=== PATIENT | male | born 1990 | race Caucasian/White ===

== ENCOUNTER 2016-04-03 14:09 | Outpatient (CLI) | payer OTHER ==
[2016-01-28 17:43] VITALS: BP 174/104
[2016-04-03 14:26] LABS: BASOPHILS % 0.6 (0.0-1.5); EOSINOPHILS % 2.3 % (0.0-6.8); MEAN CORPUSCULAR HEMOGLOBIN 33.3 pg (28.0-34.0); MONOCYTES # 0.4 # k/uL (0.0-0.9); MONOCYTES % 7.4 % (0.0-11.0); NEUTROPHILS # 3.1 # k/uL (1.4-7.7)
[2016-04-03 14:51] LABS: eGFR (African) > 60; eGFR (Non-African) > 60
== END 2016-04-03 14:10 ==
LOC: LAB 14:09
PROVIDERS: ATTEND Physician Assistant
DX: R25.2 Cramp and spasm (principal); R53.83 Other fatigue
CPT/HCPCS: 36415; 80053; 85025

== ENCOUNTER 2016-05-04 12:55 | Emergency (ER) | payer OTHER ==
--- NOTE | 2016-05-04 13:16 | ED Physician Documentation ---
General Adult - HISTORIAN Historian: patient - HPI Stated Complaint: "High Blood Pressure" Chief Complaint: General Adult Further Comments: yes (25 year old male presents with complaints of hypertension, states he missed his appointment last week, does not know the name of his provider, does not know the name of his BP medication, states he has been out for 3-4 days.) - ROS CONST: no problems EYES/ENT: none CVS/RESP: none GI/: none MS/SKIN/LYMPH: none NEURO/PSYCH: denies: headache, fainting, dizziness, tingling, numbness, difficulty walking, difficulty with speech, anxiety, depression, other - PAST HX Past History: hypertension Allergies/Adverse Reactions: Allergies Allergy/AdvReac Type Severity Reaction Status Date / Time No Known Allergies Allergy Verified 05/04/16 12:59 Home Medications: Ambulatory Orders Medication Instructions Recorded Lisinopril [Prinivil] 20 mg PO QD 05/04/16 - SOCIAL HX Smoking History: cigarettes Alcohol Use: occasionally Drug Use: other (denies) - FAMILY HX Family History: Yes (HTN) - VITAL SIGNS Vital Signs: Vital Signs Temp Pulse Resp BP Pulse Ox 90 18 167/99 99 05/04/16 12:55 05/04/16 12:55 05/04/16 12:55 05/04/16 12:55 - REVIEWED ASSESSMENTS Nursing Assessment Reviewed: Yes Vitals Reviewed: Yes Progress - Progress Progress: Reviewed risks of HTN including stroke, and heart failure. Patient requesting refill for the "cramping medicine". Explained he would need to follow up with his PCP in 5-7 days for a BP and refill on any other medications. General Adult Physical Exam - PHYSICAL EXAM GENERAL APPEARANCE: mild distress EENT: eye inspection normal, ENT inspection normal, TIRSO RESPIRATORY: no resp distress, chest non-tender, breath sounds normal CVS: reg rate & rhythm, heart sounds normal, equal pulses, no murmur, no gallop , PMI nml, no JVD, no friction rub, 24 ABDOMEN: soft, no organomegaly, normal bowel sounds, no abdominal bruit, no distension BACK: normal inspection, no CVA tenderness SKIN: normal color, warm/dry, NR, INT, PAL, DR EXTREMITIES: non-tender, normal range of motion, no evidence of injury, no edema , J, [employer] NEURO: oriented X3, CN's nml as tested, motor nml, sensation nml, mood/affect nml Discharge Clincal Impression: Hypertension Qualifiers: Hypertension type: essential hypertension Qualified Code(s): I10 - Essential ( primary) hypertension Referrals: Radha Vaz PA [Primary Care Provider] - 2 Days Additional Instructions: mail superintendent your prescription and start it today. Make an appointment to see your doctor in 5-7 days for a blood pressure check Do not miss appointments, do not stop your blood pressure medication. Home Medications: Ambulatory Orders Lisinopril [Prinivil] 20 mg PO QD 05/04/16 Condition: Stable Disposition: 01 HOME, SELF-CARE Decision to Admit: NO Decision Time: 13:15
[2016-05-04 13:21] VITALS: BP 150/88
== END 2016-05-04 13:20 | disposition home or self-care (01) ==
LOC: ED 12:55
DX: I10 Essential (primary) hypertension (principal); F17.210 Nicotine dependence, cigarettes, uncomplicated
CPT/HCPCS: 99282; 99283

== ENCOUNTER 2016-05-09 14:12 | Outpatient (CLI) | payer OTHER ==
[2016-05-09 14:31] LABS: APPEARANCE,URINE Clear (CLEAR); COLOR,URINE Yellow (YELLOW); OCCULT BLOOD,URINE Negative (NEGATIVE); PH URINE 5.5 (5.0 - 8.0); UROBILINOGEN URINE 0.2 Eu (0.2-1.0)
== END 2016-05-09 14:13 ==
LOC: LAB 14:12
PROVIDERS: ATTEND Physician Assistant
DX: R25.2 Cramp and spasm (principal)
CPT/HCPCS: 36415; 81002; 82550; 82553

== ENCOUNTER 2016-08-15 09:03 | Emergency (ER) | payer OTHER ==
[2016-08-15] MEDS ORDERED: HYDROcodone /APAP 5/325 1 EACH TABLET PO ONE (10:02)
[2016-08-15] MEDS ORDERED: IBUPROFEN 400 MG TABLET PO ONE (10:02)
[2016-08-15] MEDS ORDERED: HYDROcodone /APAP 10/325 1 EACH TABLET PO ONE (10:05)
[2016-08-15] MEDS ORDERED: KETOROLAC TROMETHAMINE 30 MG/1ML VIAL IM ONE (10:05)
[2016-08-15 10:33] VITALS: BP 149/84
--- NOTE | 2016-08-15 13:17 | ED Physician Documentation ---
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15 Onset: days ago (2) Where: work Severity: moderate Duration: persistent since (2 days ago) Context: other (construction, ) Location of Injury: L wrist Front/Back of Body, Lg ([place]): 1 - pain Modifying Factors: pain on movement Further Comments: no - ROS CONST: no problems GI/: denies: problems urinating, nausea, vomiting NEURO: none CVS/RESP: none EYES/ENT: denies: none MS/SKIN/LYMPH: other (left wrist pain) - PAST HX Past History: none Immunizations: referred to PCP Allergies/Adverse Reactions: Allergies Allergy/AdvReac Type Severity Reaction Status Date / Time No Known Allergies Allergy Verified 08/15/16 09:53 Home Medications: Ambulatory Orders Medication Instructions Recorded Lisinopril [Prinivil] 20 mg PO QD 05/04/16 - SOCIAL HX Smoking History: cigarettes Alcohol Use: none Drug Use: none - FAMILY HX Family History: no significant history - VITAL SIGNS Vital Signs: Vital Signs Temp Pulse Resp BP Pulse Ox 82 20 129/102 96 08/15/16 09:48 08/15/16 09:48 08/15/16 09:48 08/15/16 09:48 - REVIEWED ASSESSMENTS Nursing Assessment Reviewed: Yes Vitals Reviewed: Yes Wrist Physical Exam - Physical Exam General Appearance: moderate distress Hand: nml inspection, non-tender, no evidence of FB Wrist: normal ROM, bone tenderness (left distal ulna), swelling (minor), tenderness (left distal ulna) Neuro: sensation nml, motor nml Vascular: no vascular compromise Tendon: tendon function nml Forearm/Elbow/Arm: uninjured above wrist Skin: warm/dry, normal color Head/ENT: nml inspection, pharynx nml Neck/Back: nml inspection, non-tender Resp/CVS: chest non-tender, breath sounds nml, heart sounds nml, no resp. distress, lungs clear, reg. rate & rhythm Abdomen: non-tender, no organomegaly, nml bowel sounds, no distention Progress - Results/Orders Results/Orders: x-ray left wrist ordered - Progress Progress: pt. given [place] 10/325 1 p.o. in er as well as 30 mg Toradol im in er Critical Care Note - Critical Care Note Total Time (mins): 0 ED Results Lab/Radiology - Lab Results Lab Results: none ordered - Radiology Radiology Impressions: x-ray left wrist neg for new fx - Orders Orders: ED Orders Category Date Time Status Cock-Up Splint 1T Care 08/15/16 10:26 Ordered WRIST 3 VIEWS OR MORE [RAD] Stat Exams 08/15/16 Ordered HYDROcodone /APAP 10/325 [[place] 10/325] Med 08/15/16 10:05 Discontinued 1 each PO NOW ONE HYDROcodone /APAP 5/325 [[place] 5/325] Med 08/15/16 10:02 Discontinued 1 each PO NOW ONE Ibuprofen [Advil] Med 08/15/16 10:02 Discontinued 800 mg PO NOW ONE Ketorolac Tromethamine [Toradol] Med 08/15/16 10:05 Discontinued 30 mg IM NOW ONE Discharge Clincal Impression: Wrist sprain Qualifiers: Encounter type: initial encounter Laterality: left Qualified Code(s): S63.502A - Unspecified sprain of left wrist, initial encounter Referrals: Radha Vaz PA [Primary Care Provider] - 2 Days Home Medications: Ambulatory Orders Lisinopril [Prinivil] 20 mg PO QD 05/04/16 Comments: discharged in stable condition to care of sig. other with scripts for tizanidine 4 mg 1 pill qid #20, meloxicam 1 pill twice daily #10. Condition: Stable Disposition: 01 HOME, SELF-CARE Decision to Admit: NO Decision Time: 10:30
--- NOTE | 2016-08-15 13:58 | Diagnostic Imaging Report ---
CHARLY BANGURA [facility] [id number] [facility] [address] [address] Report Submission Date: August 15, 2016 11:00:32 AM CDT Patient Study Name: SATHISH LAWRENCE Date: August 15, 2016 10:08:24 AM CDT Modality Type: CR Gender: M Description: UPPER EXTREMITY : 90 Institution: [facility] Physician: CHARLY BANGURA Left wrist 3 views History: Pain after injury Findings: The left wrist is unremarkable without fracture, dislocation, arthropathy, or focal bone lesion. The ulna is shorter than the radius. Impression: Negative ulnar variance. No acute abnormality. Electronically signed on August 15, 2016 11:00:32 AM CDT by: Donn WADE
== END 2016-08-15 10:30 | disposition home or self-care (01) ==
LOC: ED 09:03
DX: S63.502A Unspecified sprain of left wrist, initial encounter (principal); W19.XXXA Unspecified fall, initial encounter; Y93.9 Activity, unspecified; Y99.9 Unspecified external cause status
CPT/HCPCS: 73110; J1885; L3908

== ENCOUNTER 2016-10-15 08:00 | Emergency (ER) | payer OTHER ==
[2016-10-15 08:21] VITALS: BP 118/84
--- NOTE | 2016-10-15 08:39 | ED Physician Documentation ---
General Adult - HISTORIAN Historian: patient - HPI Stated Complaint: swollen mouth Chief Complaint: General Adult Onset: days ago (yesterday) Timing: still present Severity: mild (Started to breakout on his lips yesterday, stings and mansfiled, No fever or chills, can swallow OK. No previous problems. Has been out in the sun) Further Comments: yes (patient states it is at a history of fever blisters before but not to the extent that is having problems today. Patient data developing a sting in burning pain in his lips yesterday that has broke out with some blistering. Patient has been on the sun. Patient denies any oral mucosal lesions.) - ROS CONST: no problems. denies: fever, chills - PAST HX Past History: hypertension Other History: none Surgeries/Procedures: other (left meniscus surgery) Immunizations: referred to PCP Allergies/Adverse Reactions: Allergies Allergy/AdvReac Type Severity Reaction Status Date / Time No Known Allergies Allergy Verified 08/15/16 09:53 Home Medications: Ambulatory Orders Medication Instructions Recorded Lisinopril [Prinivil] 40 mg PO QD 05/04/16 Acyclovir [Zovirax] 200 mg PO 5XDAY #25 capsule 10/15/16 - SOCIAL HX Smoking History: less than 1 pack/day (3/4 ppd) Alcohol Use: none Drug Use: none - FAMILY HX Family History: No - VITAL SIGNS Vital Signs: Vital Signs Temp Pulse Resp BP Pulse Ox 98.6 F 84 20 118/84 97 10/15/16 08:00 10/15/16 08:00 10/15/16 08:00 10/15/16 08:00 10/15/16 08:00 - REVIEWED ASSESSMENTS Nursing Assessment Reviewed: Yes Vitals Reviewed: Yes General Adult Physical Exam - PHYSICAL EXAM GENERAL APPEARANCE: no distress EENT: eye inspection normal, pharynx normal, no signs of dehydration, other ( multiple fever blisters to the lips bilaterally). No: pharyngeal erythema NECK: normal inspection, thyroid normal RESPIRATORY: no resp distress, chest non-tender, breath sounds normal. No: wheezes, rales, rhonchi CVS: reg rate & rhythm, heart sounds normal, equal pulses, no murmur, no gallop NEURO: oriented X3, mood/affect nml Discharge Clincal Impression: Fever blister Prescriptions: Acyclovir [Zovirax] 200 mg PO 5XDAY #25 capsule Referrals: Radha Vaz PA [Primary Care Provider] - 2 Days Additional Instructions: Use sun screen over the lips. Use blisterix as needed. Take acyclovir as directed. Home Medications: Ambulatory Orders Lisinopril [Prinivil] 40 mg PO QD 05/04/16 Acyclovir [Zovirax] 200 mg PO 5XDAY #25 capsule 10/15/16 Condition: Stable Disposition: 01 HOME, SELF-CARE Decision to Admit: NO Date of Decison to Admit: 10/15/16 Decision Time: 08:44
== END 2016-10-15 09:10 | disposition home or self-care (01) ==
LOC: ED 08:00
DX: B00.1 Herpesviral vesicular dermatitis (principal)
CPT/HCPCS: 99283

== ENCOUNTER 2017-01-16 12:52 | Emergency (ER) | payer OTHER ==
[2017-01-16 13:10] VITALS: BP 141/87
--- NOTE | 2017-01-16 13:12 | ED Physician Documentation ---
Sore Throat/Dental Pain - HISTORIAN Historian: patient, friend - HPI Stated Complaint: left lower jaw pain Chief Complaint: Dental Pain Additional Information: tooth 19 caries and pain min erythema gum Onset: days ago (1) Context: Dental Caries, Possible Infection Associated Symptoms: denies: fever Worsened By: heat, cold - ROS CONST: no problems CVS/RESP: none GI/: nausea. denies: problems urinating NEURO/PSYCH: none - PAST HX Past History: none Allergies/Adverse Reactions: Allergies Allergy/AdvReac Type Severity Reaction Status Date / Time No Known Allergies Allergy Verified 01/16/17 13:11 Home Medications: Ambulatory Orders Medication Instructions Recorded Lisinopril [Prinivil] 40 mg PO QD 05/04/16 Cyclobenzaprine HCl 5 mg PO BID 01/16/17 [Cyclobenzaprine HCl] - SOCIAL HX Smoking History: non-smoker Alcohol Use: occasionally Drug Use: none - FAMILY HX Family History: No - VITAL SIGNS Vital Signs: Vital Signs Temp Pulse Resp BP Pulse Ox 97.6 F 97 H 20 141/87 98 01/16/17 12:52 01/16/17 12:52 01/16/17 12:52 01/16/17 12:52 01/16/17 12:52 - REVIEWED ASSESSMENTS Nursing Assessment Reviewed: Yes Vitals Reviewed: Yes Dental Pain Physical Exam - EXAM General Appearance: mild distress, moderate distress Head/Neck: head nml inspection Eyes: eyes nml inspection Mouth/Throat: lips nml, pharynx nml, voice nml. No: gums nml Ear/Nose: nml inspection, TM erythema Respiratory: no resp. distress, breath sounds nml CVS: reg. rate & rhythm, heart sounds nml Abdomen: soft, non-tender Extremities: non-tender, nml ROM Skin: warm/dry, normal color. No: cyanosis, diaphoresis Neuro/Psych: No: weakness, numbness, anxiety Discharge Clincal Impression: dental cavity and sepsis Referrals: Radha Vaz PA [Primary Care Provider] - 2 Days Comments: see dentist soon Condition: Good Disposition: 01 HOME, SELF-CARE Decision to Admit: NO Decision Time: 13:13
== END 2017-01-16 13:12 | disposition home or self-care (01) ==
LOC: ED 12:52
DX: K02.9 Dental caries, unspecified (principal); A41.9 Sepsis, unspecified organism
CPT/HCPCS: 99283

== ENCOUNTER 2017-02-03 00:32 | Emergency (ER) | payer OTHER ==
[2017-02-03 00:53] VITALS: BP 130/83
[2017-02-03] MEDS ORDERED: methylPREDNISolone SOD SUCC 125 MG/2 ML VIAL IM ONE (00:59)
[2017-02-03] MEDS ORDERED: diphenhydrAMINE HCL 25 MG TABLET PO ONE ×2 (01:00→01:01)
--- NOTE | 2017-02-03 01:05 | ED Physician Documentation ---
General Adult - HPI Stated Complaint: rash Chief Complaint: General Adult Onset: days ago (1) Timing: still present Severity: moderate Further Comments: yes (Pt is a 26 yo male with a rash on extermities and torso. Pt does not know what he may have been exposed to. Rash is raised and pruritic. Pt has taken no meds [employer].) - ROS CONST: no problems EYES/ENT: none CVS/RESP: none GI/: none MS/SKIN/LYMPH: rash - PAST HX Past History: hypertension Surgeries/Procedures: other (ortho surgery) Allergies/Adverse Reactions: Allergies Allergy/AdvReac Type Severity Reaction Status Date / Time No Known Allergies Allergy Verified 02/03/17 00:53 Home Medications: Ambulatory Orders Medication Instructions Recorded Lisinopril [Prinivil] 40 mg PO QD 05/04/16 - SOCIAL HX Smoking History: cigarettes - FAMILY HX Family History: No - VITAL SIGNS Vital Signs: Vital Signs Temp Pulse Resp BP Pulse Ox 57 L 16 130/83 97 02/03/17 00:35 02/03/17 00:35 02/03/17 00:35 02/03/17 00:35 - REVIEWED ASSESSMENTS Nursing Assessment Reviewed: Yes Vitals Reviewed: Yes Progress - Progress Progress: Solu-medrol 125 mg IM Benadryl 25 mg po in ER. Rx Prednisone 10 mg. Take 6 tablets at one time each day for 2 days; then 5 tablets by mouth once daily for 2 days; then 4 tablets by mouth once daily for 2 days; then 3 tablets by mouth once daily for 2 days; then 2 tablets by mouth once daily for 2 days; then 1 tablet by mouth once daily for 2 days; the stop. Benadryl (available over the counter) Use as directed. ED Results Lab/Radiology - Orders Orders: ED Orders Category Date Time Status diphenhydrAMINE HCL [Benadryl] Med 02/03/17 01:01 Discontinued 25 mg PO .STK-MED ONE diphenhydrAMINE HCL [Benadryl] Med 02/03/17 01:00 Once 25 mg PO NOW ONE methylPREDNISolone SOD SUCC [Solu-MEDROL] Med 02/03/17 00:59 Once 125 mg IM NOW ONE General Adult Physical Exam - PHYSICAL EXAM GENERAL APPEARANCE: mild distress EENT: pharynx normal NECK: normal inspection, supple RESPIRATORY: no resp distress, chest non-tender, breath sounds normal CVS: reg rate & rhythm, heart sounds normal SKIN: other (urticarial rash on torso and upper extremities) NEURO: oriented X3, motor nml, sensation nml Discharge Clincal Impression: RASH Referrals: Radha Vaz PA [Primary Care Provider] - Condition: Good Disposition: 01 HOME, SELF-CARE Decision to Admit: NO Decision Time: 01:04
== END 2017-02-03 01:10 | disposition home or self-care (01) ==
LOC: ED 00:32
DX: R21 Rash and other nonspecific skin eruption (principal)
CPT/HCPCS: J2930; Q0163; 96372; 99283